=== PATIENT | male | born 1970 | race Caucasian/White ===

== ENCOUNTER → 2018-08-12 | Outpatient (CLI) | payer OTHER ==
[~2018-08-12] MED LIST: ALLOPURINOL300 MG PO; ASPIRIN 32325 MG/TAB PO; CLOPIDOGREL PO; COREG 6.256.25 MG/TA PO; PEPCID AC 10MG10 MG PO; ZOCOR40 MG PO
== END ==
LOC: COL.RAD 13:43
DX: M23.92 Unspecified internal derangement of left knee (principal); M17.12 Unilateral primary osteoarthritis, left knee; M94.262 Chondromalacia, left knee

== ENCOUNTER 2019-05-27 08:46 | Day surgery (SDC) | payer OTHER ==
[~2019-05-27] VITALS: Ht 182.9 cm; Wt 103.9 kg
[2019-05-27] MEDS ORDERED: KAPSPARGO SPRI100 MG PO (09:01)
[2019-05-27 09:02] VITALS: BP 140/86; PULSE 68; TEMP 97.6
[2019-05-27] MEDS ORDERED: ZOCOR 40MG40 MG PO (09:02)
[2019-05-27] MEDS ORDERED: PLAVIX 75MG TAB75 MG PO (09:02)
[2019-05-27] MEDS ORDERED: ASPIRIN 81M81 MG/TA2 PO (09:02)
[2019-05-27] MEDS ORDERED: EPA FISH OIL1 SGL PO (09:02)
[2019-05-27 11:00] VITALS: BP 118/73; PULSE 70; TEMP 97.1
[2019-05-27 11:15] VITALS: BP 108/98; PULSE 67
[2019-05-27 11:30] VITALS: BP 124/87; PULSE 55
--- NOTE | 2019-05-27 12:04 | NUR ---
PT RETURNED FROM ENDO OR INTO BAY#4, SIMI PRESENT IN ROOM. PT A/OX3. DENIES PAIN AND OR NAUSEA. REQUESTS BLUEBERRY MUFFIN AND SPRITE AND APPLE JUICE TO DRINK. VSS, LUNGS CLEAR, S1 S2 REGULAR. BOWEL SOUNDS PRESENT. AFEBRILE. WILL CONT TO MONITOR PROGRESS.
--- NOTE | 2019-05-27 12:33 | NUR ---
TOLERATING FOOD AND FLUIDS. TALKING WITH , SIMI. DENIES NAUSEA AND PAIN. WILL MONITOR PROGRESS.
--- NOTE | 2019-05-27 12:36 | NUR ---
PT A/OX3, TOLERATING FOOD AND FLUIDS, DENIES PAIN OR NAUSEA. VSS, DISCHARGE INSTRUCTIONS GIVEN AND SIGNED, PT VOICES UNDERSTANDING. IV DC'D PER RIGHT HAND, TOLERATED WELL. PT TAKEN OUT PER WC, DRIVING.
== END 2019-05-27 12:00 | disposition home or self-care (01) ==
LOC: SDCO 08:46
DX: Z12.11 Encounter for screening for malignant neoplasm of colon (principal); I25.2 Old myocardial infarction; I10 Essential (primary) hypertension; I25.10 Atherosclerotic heart disease of native coronary artery without angina pectoris; G47.33 Obstructive sleep apnea (adult) (pediatric); M17.0 Bilateral primary osteoarthritis of knee; M10.9 Gout, unspecified; Z80.0 Family history of malignant neoplasm of digestive organs; Z91.041 Radiographic dye allergy status
CPT/HCPCS: J2704; J7030